=== PATIENT | male | born 1980 | race African-American/Black ===

== ENCOUNTER 2019-07-07 22:05 | Emergency (ER) | payer MEDICAID ==
[~2019-07-07] VITALS: Ht 180.3 cm; Wt 90.7 kg
[2019-07-07 22:09] VITALS: BP 142/75
--- NOTE | 2019-07-07 22:25 | NUR ---
PT BIB [facility] WITH A C/O RT ANKLE PAIN. PT HAS A CAM WALKER BOOT ON THAT FOOT. PT IS SITTING IN A WC AND APPEARS TO BE SLEEPING SOUNDLY. WILL CONTINUE TO MONITOR THE PT.
--- NOTE | 2019-07-07 23:15 | NUR ---
Patient discharged to home in stable condition. Written and verbal after care instructions given. Patient verbalizes understanding of instruction.
== END 2019-07-07 23:16 | disposition home or self-care (01) ==
LOC: ER 22:18
DX: M25.571 Pain in right ankle and joints of right foot (principal); Z98.890 Other specified postprocedural states; Z88.6 Allergy status to analgesic agent
CPT/HCPCS: 73610-TC

== ENCOUNTER 2023-12-03 16:35 | Inpatient (IN) | payer MEDICAID, OTHER ==
[~2023-12-03] VITALS: Ht 180.3 cm; Wt 104.3 kg
[2023-12-03] MEDS ORDERED: ONDANSETRON HCL/PF 4 MG/2 ML VIAL ONE (16:58)
[2023-12-03] MEDS ORDERED: FAMOTIDINE/PF INJ 20 MG/2 ML VIAL IV ONE (16:59)
[2023-12-03 17:26] LABS: BASOPHILS % (AUTO) 0.4 % (0.0-2.0); EOSINOPHILS # (AUTO) 0.3 K/uL (0.0-0.7); EOSINOPHILS % (AUTO) 5.3 % (0.0-6.0); HEMATOCRIT 43 % (39-51); HEMOGLOBIN 14.6 g/dL (13.5-17.5); LYMPHOCYTES # (AUTO) 2.2 K/uL (0.8-4.8); LYMPHOCYTES % (AUTO) 34.2 % (20.0-44.0); MEAN CORPUSCULAR HEMOGLOBIN 32 PG (26.0-33.0); MEAN CORPUSCULAR HGB CONC 34 g/dl (31.0-36.0); MEAN CORPUSCULAR VOLUME 93 fL (80-96); MONOCYTES # (AUTO) 0.6 K/uL (0.1-1.30); MONOCYTES % (AUTO) 9.7 % (2.0-12.0); NEUTROPHILS # (AUTO) 3.2 K/uL (1.8-8.9); NEUTROPHILS % (AUTO) 50.4 % (43.0-81.0); PLATELET COUNT (AUTO) 237 K/uL (150-450); RED BLOOD CELL COUNT(AUTO) 4.63 MIL/uL (4.5-6.0); RED CELL DISTRIBUTION WIDTH 13.5 % (11.5-15.0); WHITE BLOOD COUNT (AUTO) 6.3 K/uL (4.3-11.0)
[2023-12-03] MEDS: IV NS 0.9% 1,000 ML BAG IV ONE (17:27)
[2023-12-03] MEDS: ONDANSETRON HCL/PF 4 MG/2 ML VIAL IVP ONE (17:31)
[2023-12-03] MEDS: FAMOTIDINE/PF INJ 20 MG/2 ML VIAL IV ONE (17:33)
[2023-12-03 17:51] LABS: CALCIUM, SERUM 8.4 mg/dL (8.5-10.1); POTASSIUM 3.4 mmol/L (3.5-5.1)
[2023-12-03 17:57] LABS: ALBUMIN 3.1 g/dL (3.4-5.0); BILIRUBIN,DIRECT 0.1 mg/dL (0.0-0.2); BILIRUBIN,TOTAL 0.4 mg/dL (0.2-1.0); TOTAL PROTEIN, SERUM 7.2 g/dL (6.4-8.2)
[2023-12-03 18:37] LABS: APPEARANCE,URINE Clear (CLEAR); BILIRUBIN,URINE Negative (NEGATIVE); BLOOD, URINE Trace-intact Ery/uL (NEGATIVE); COLOR,URINE YELLOW (YELLOW); KETONES,URINE Negative (NEGATIVE); LEUKOCYTE ESTERASE ,URINE Negative (NEGATIVE); NITRITE, URINE Negative (NEGATIVE); PROTEIN,URINE Negative (NEGATIVE); UGLUCOSE Negative (NEGATIVE); UROBILINOGEN,URINE 0.2 EU/dL (0.2)
[2023-12-03 18:45] LABS: ADD URINE CULTURE NO; BACTERIA,URINE Rare /HPF (None Seen); SQUAMOUS EPITHELIAL CELL,UR Rare /HPF (None Seen); WBC,URINE 0-2 /HPF (0-3)
[2023-12-03 20:56] VITALS: O2SAT 97
[2023-12-03 21:18] VITALS: BP 109/82; TEMP 97.7; O2SAT 99
[2023-12-03] MEDS ORDERED: ONDANSETRON HCL/PF 4 MG/2 ML VIAL IVP PRN (22:00)
[2023-12-03] MEDS ORDERED: Z GUARD REMEDY 4 OZ OINT TP PRN (22:00)
[2023-12-03] MEDS ORDERED: Potassium Chloride 10 MEQ, LIDOCAINE HCL/PF 1% 1 ML in IV NS 0.9% 50 ML IV SCH (22:00)
[2023-12-03] MEDS ORDERED: PIPERACI/TAZO 3.375GM/D5W 50ML PB IV ONE (22:48)
[2023-12-03] MEDS: IV NS 0.9% 1,000 ML IV PRN (23:02)
[2023-12-03] MEDS: POTASSIUM CL. PREMIX PERIPHER. 50 ML ONE (23:15)
[2023-12-03] MEDS: MORPHINE SULFATE INJ 2 MG/ML DISP.SYRIN IV PRN (23:52)
[2023-12-04] MEDS: PIPERACILLIN /TAZOBACTAM 3.375 G in IV D5W 250 ML IV SCH (00:34)
[2023-12-04] MEDS ORDERED: PIPERACI/TAZO 3.375GM/D5W 50ML PB IV ONE (05:59)
[2023-12-04 06:39] LABS: BASOPHILS % (AUTO) 0.4 % (0.0-2.0); EOSINOPHILS # (AUTO) 0.3 K/uL (0.0-0.7); EOSINOPHILS % (AUTO) 4.1 % (0.0-6.0); HEMATOCRIT 38 % (39-51); HEMOGLOBIN 13.2 g/dL (13.5-17.5); LYMPHOCYTES # (AUTO) 2.3 K/uL (0.8-4.8); MEAN CORPUSCULAR HEMOGLOBIN 32 PG (26.0-33.0); MEAN CORPUSCULAR HGB CONC 34 g/dl (31.0-36.0); MEAN CORPUSCULAR VOLUME 94 fL (80-96); MONOCYTES # (AUTO) 0.7 K/uL (0.1-1.30); MONOCYTES % (AUTO) 9.7 % (2.0-12.0); NEUTROPHILS # (AUTO) 3.6 K/uL (1.8-8.9); NEUTROPHILS % (AUTO) 52.8 % (43.0-81.0); PLATELET COUNT (AUTO) 235 K/uL (150-450); RED BLOOD CELL COUNT(AUTO) 4.08 MIL/uL (4.5-6.0); RED CELL DISTRIBUTION WIDTH 13.3 % (11.5-15.0); WHITE BLOOD COUNT (AUTO) 6.9 K/uL (4.3-11.0)
[2023-12-04 06:42] LABS: ALBUMIN 2.6 g/dL (3.4-5.0); BILIRUBIN,DIRECT 0.1 mg/dL (0.0-0.2); BILIRUBIN,TOTAL 0.5 mg/dL (0.2-1.0); MAGNESIUM 2.1 mg/dL (1.8-2.4); PHOSPHORUS 4.2 mg/dL (2.5-4.9); POTASSIUM 4.1 mmol/L (3.5-5.1); TOTAL PROTEIN, SERUM 6.3 g/dL (6.4-8.2)
[2023-12-04 07:31] LABS: THYROID STIMULATING HORMONE 0.64 uIU/mL (0.358-3.74)
[2023-12-04] MEDS: PANTOPRAZOLE 40 MG VIAL IV SCH (08:12)
[2023-12-04 08:29] VITALS: BP 110/72; TEMP 97.9; O2SAT 98
[2023-12-04] MEDS: ZOSYN IVPB 3.375 G in IV D5W 50ml IV SCH (12:22)
[2023-12-04] MEDS ORDERED: OLAN10TA3 PO (13:32)
[2023-12-04] MEDS ORDERED: BUSP10TA35 PO (13:32)
[2023-12-04] MEDS ORDERED: FLUO20SO2 PO (13:32)
[2023-12-04] MEDS ORDERED: BUPR1FIL19 SL (13:32)
[2023-12-04] MEDS ORDERED: BUPR-54 PO (13:32)
[2023-12-04] MEDS ORDERED: HYDR25TA4 PO (13:32)
[2023-12-04] MEDS ORDERED: hydrOXYzine HCL INJ 25 MG/ML VIAL IM ONE ×3 (14:30→15:30)
[2023-12-04 15:41] LABS: INR 1.03 (0.91-1.10); PROTHROMBIN TIME 10.9 SECS (9.2-11.1)
[2023-12-04] MEDS ORDERED: KETOROLAC TROMETHAMINE INJ 30 MG/ML VIAL IM ONE (16:00)
[2023-12-04 16:18] VITALS: BP 108/71; TEMP 97.9; O2SAT 95
[2023-12-04] MEDS: LORAZEPAM INJ 2 MG/ML VIAL IM ONE ×2 (16:30→17:12)
[2023-12-04] MEDS: busPIRone HCL 10 MG TABLET PO SCH (17:00)
[2023-12-04] MEDS ORDERED: NALOXONE HCL SL SCH (17:00)
[2023-12-04] MEDS: FLUOXETINE HCL 20 MG CAPSULE PO SCH (17:00)
[2023-12-04] MEDS ORDERED: BUPRENORPHINE HCL SL SCH (17:00)
[2023-12-04] MEDS ORDERED: [UNRECOGNIZED DRUG - OTHER] SL SCH (17:00)
[2023-12-04] MEDS ORDERED: FLUOXETINE HCL 20 MG/5 ML UDC PO SCH (17:00)
[2023-12-04] MEDS ORDERED: HALO2ORA3 PO (17:58)
[2023-12-04] MEDS ORDERED: DIPH-1048 PO (17:58)
[2023-12-04] MEDS ORDERED: diphenhydrAMINE HCL ELIX 25 MG/10 ML UDC PO SCH (19:00)
[2023-12-04] MEDS ORDERED: HALOPERIDOL 1 MG TABLET PO SCH (20:00)
[2023-12-04] MEDS ORDERED: ANESTHESIA TRAY IN PYXIS 1 EA TRAY MC ONE (20:21)
[2023-12-04] MEDS: diphenhydrAMINE HCL ELIX 25 MG/10 ML UDC PO SCH (22:14)
[2023-12-04] MEDS: HALOPERIDOL 1 MG TABLET PO SCH (22:26)
[2023-12-04 23:00] VITALS: BP 112/75; TEMP 97.3; O2SAT 97
[2023-12-05 06:51] LABS: BASOPHILS % (AUTO) 0.4 % (0.0-2.0); EOSINOPHILS # (AUTO) 0.2 K/uL (0.0-0.7); EOSINOPHILS % (AUTO) 4.5 % (0.0-6.0); HEMATOCRIT 37 % (39-51); HEMOGLOBIN 12.6 g/dL (13.5-17.5); LYMPHOCYTES # (AUTO) 1.9 K/uL (0.8-4.8); LYMPHOCYTES % (AUTO) 38.4 % (20.0-44.0); MEAN CORPUSCULAR HEMOGLOBIN 33 PG (26.0-33.0); MEAN CORPUSCULAR HGB CONC 34 g/dl (31.0-36.0); MEAN CORPUSCULAR VOLUME 94 fL (80-96); MONOCYTES # (AUTO) 0.5 K/uL (0.1-1.30); MONOCYTES % (AUTO) 10.5 % (2.0-12.0); NEUTROPHILS # (AUTO) 2.3 K/uL (1.8-8.9); NEUTROPHILS % (AUTO) 46.2 % (43.0-81.0); PLATELET COUNT (AUTO) 219 K/uL (150-450); RED BLOOD CELL COUNT(AUTO) 3.88 MIL/uL (4.5-6.0); RED CELL DISTRIBUTION WIDTH 13.5 % (11.5-15.0); WHITE BLOOD COUNT (AUTO) 5.1 K/uL (4.3-11.0)
[2023-12-05 07:02] LABS: ALBUMIN 2.6 g/dL (3.4-5.0); BILIRUBIN,DIRECT 0.1 mg/dL (0.0-0.2); BILIRUBIN,TOTAL 0.5 mg/dL (0.2-1.0); CALCIUM, SERUM 8.3 mg/dL (8.5-10.1); CREATININE 1.1 mg/dL (0.6-1.3); MAGNESIUM 2.4 mg/dL (1.8-2.4); PHOSPHORUS 4.2 mg/dL (2.5-4.9); POTASSIUM 3.8 mmol/L (3.5-5.1); TOTAL PROTEIN, SERUM 6.3 g/dL (6.4-8.2)
[2023-12-05 07:30] VITALS: BP 117/77; TEMP 97.8; O2SAT 98
[2023-12-05] MEDS ORDERED: CT SWABBABLE VALVE TRANS SET 1 EA INFUS.SET MC ONE (08:17)
[2023-12-05] MEDS ORDERED: IV NS 0.9% 250 ML IV ONE (08:17)
[2023-12-05] MEDS ORDERED: IOHEXOL-300 100 ML VIAL IV ONE (08:17)
[2023-12-05] MEDS: BUPROPION XL 150 MG TAB.ER.24 PO SCH (09:00)
[2023-12-05] MEDS: PANTOPRAZOLE 40 MG TABLET.DR PO SCH (09:00)
[2023-12-05] MEDS ORDERED: OLANZAPINE 10 MG TABLET PO SCH (09:00)
[2023-12-05] MEDS: HYDROCHLOROTHIAZIDE 25 MG TABLET PO SCH (09:01)
[2023-12-05] MEDS: PIPERACILLIN /TAZOBACTAM 3.375 G in IV D5W 100 ML IV SCH (14:56)
[2023-12-05] MEDS: busPIRone 5 MG TABLET PO SCH (14:56)
[2023-12-05 16:00] VITALS: BP 112/71; TEMP 98.1; O2SAT 98
== END 2023-12-05 18:00 | disposition home or self-care (01) ==
LOC: ER 16:37 → MED 20:44
PROVIDERS: ADMIT Nurse Practitioner Family; ATTEND Nurse Practitioner Family
PROC: 0DB68ZX Excision of Stomach, Via Natural or Artificial Opening Endoscopic, Diagnostic (ICD-10-PCS; principal; 2023-12-04)
DX: K80.50 Calculus of bile duct without cholangitis or cholecystitis without obstruction (principal); E83.51 Hypocalcemia; E88.09 Other disorders of plasma-protein metabolism, not elsewhere classified; E66.9 Obesity, unspecified; E87.6 Hypokalemia; I10 Essential (primary) hypertension; K29.70 Gastritis, unspecified, without bleeding; Z87.891 Personal history of nicotine dependence; Z87.11 Personal history of peptic ulcer disease; F31.9 Bipolar disorder, unspecified; F41.9 Anxiety disorder, unspecified; K82.8 Other specified diseases of gallbladder; R73.9 Hyperglycemia, unspecified; Z68.32 Body mass index [BMI] 32.0-32.9, adult; R53.1 Weakness
CPT/HCPCS: 36415; 76705-TC; 78226; 80048-TC; 80061-TC; 80076-TC; 81001; 82150-TC; 83690-TC; 83735-TC; 84100-TC; 84443-TC; 84484-TC; 85025-TC; 85610-TC; 88305-TC; 88313-TC; 88342; A4223; A9537; G0378; J2060; J2270; J2405; J2470; J2543; J2704; J3410; J3480; J3490; J7030; J7050; J7060; Q0163; Q9967